=== PATIENT | male | born 1955 | race Caucasian/White ===

== ENCOUNTER 2018-12-10 18:37 | Inpatient (IN) ==
[2018-12-10] MEDS ORDERED: Naloxone 0.4 MG/ML INJ IVP PRN (22:52)
[2018-12-10] MEDS ORDERED: 0.9 % Sodium Chloride 1,000 ML IVC SCH (23:00)
[2018-12-11 00:03] LABS: Eosinophils % 0.1 %; Monocytes % 7.5 %; Red Cell Distribution Width 17.4 % (11.5-14.5)
[2018-12-11 00:05] LABS: Basophils % 0.3 %; Hematocrit 24.3 % (37.5-50.1); Immature Granulocytes % 0.7 % (0-4); Lymphocytes # 1.2 K/mcL (0.6-4.6); Lymphocytes % 10.9 %; Mean Corpuscular HGB Conc 28.8 g/dL (31.6-35.5); Mean Corpuscular Hemoglobin 20.6 pg (28.0-33.3); Mean Corpuscular Volume 71.7 fL (83.0-100.0); Mean Platelet Volume 9.5 fL (9.4-12.4); Monocytes # 0.8 K/mcL (0.0-1.3); Neutrophils # 8.6 K/mcL (1.6-8.9); Nucleated Red Blood Cells 0.2 /100 WBC (0); Platelet Count 310 K/mcL (140-400); Red Blood Count 3.39 M/mcL (4.19-5.50); Segmented Neutrophils % 80.5 %
[2018-12-11 00:09] LABS: INR 1.2; Prothrombin Time 13.2 Seconds (9.4-12.1)
--- NOTE | 2018-12-11 00:14 | Internal Med History&Physical ---
Date of Encounter: 12/11/18 Time of Encounter: 00:03 Internal Medicine - H&P: HPI Chief complaint: Hematuria History of present illness: Mr. Espinoza is a 63 year old male with a past medical history of uncontrolled hypertension and recurrent episodes of gross hematuria who initially presented to [facility] after a syncopal episode earlier today. Patient states that he awoke this morning feeling somewhat lightheaded getting out of bed. When about his day at work. Patient states that around noon as he was doing some heavy lifting, he felt dizzy and lightheaded. He went to sit down and the next thing he knew he was on the ground with coworkers looking down upon him. Patient was noted at the time to be diaphoretic when he came to. No reports that the episode was witnessed by anyone. Patient believes he was out of her a few minutes. Denies any symptoms of nausea, flushing, palpitations or chest pain prior to syncopal event. Per report patient had another syncopal event after EMT arrived and was placing him on the gurney. Patient does not recall this episode either. Patient states that he has been taking his friend's antihypertensive medications, specifically lisinopril and metoprolol intermittently which she states was the same medication he was previously on. He is unsure of the doses are the same as his previous regimen. After arrival to [facility], laboratory workup was notable for hemoglobin of 6.0. Patient states that he has been having intermittent episodes of gross hematuria since 2011. He states that has been treated with antibiotics for his hematuria in the past and his hematuria would resolve, but woud eventually recur. Patient states that for the past several months it has been persistent. He denies any pain, dysuria, frequency or urgency. Patient denies any history of kidney stones or flank pain for that matter. No reports of unintentional weight loss. Patient is a never smoker. No alcohol use. Patient also has a history of hypertension and at times he stated his blood pressure is been over 200. Patient was taking antihypertensives up until recently as the cost has been too much for him. He is not currently on any medical insurance. 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 Past Med Surg Social Fam HX - Past Medical History Medical history: hypertension Additional medical history: cateracts Psychiatric history: no psych history - Past Surgical History Additional surgical history: left eye surgery - Social History Smoking Status: Never smoker Smokeless Tobacco Status: No Alcohol use: none Drug use: none - Additional Family History Additional family history: Family history of high blood pressure Internal Medicine - H&P: Meds No Known Home Drugs 12/11/18 [History] Allergy/AdvReac Type Severity Reaction Status Date / Time No Known Allergies Allergy Verified 12/10/18 23:18 All Systems PM: A 10-system review of systems was performed and is negative for pertinent findings except as documented above in the HPI. - Constitutional Constitutional: no chills, no fever(s), no night sweats - EENT Eyes: no change in vision, no discharge, no pain, no photophobia Ears: no ear discharge, no ear pain, no tinnitus Nose, mouth and throat: no dysphagia, no nasal discharge, no neck pain, no sore throat - Cardiovascular Cardiovascular ROS IM: no chest pain, no diaphoresis, no dyspnea, no lightheadedness, no palpitations, no syncope - Respiratory Respiratory: no cough, no dyspnea, no wheezing, no excessive phlegm production - Gastrointestinal Gastrointestinal: no abdominal pain, no diarrhea, no hematemesis, no hematochezia, no melena, no nausea, no vomiting - Musculoskeletal Musculoskeletal ROS IM: no numbness, no tingling - Integumentary Integumentary IM: no rash, no unusual bruising - Neurological Neurological ROS: no confusion, no convulsions, no focal weakness, no numbness, no tingling, no tremor(s) - Hematologic/Lymphatic Hematologic/Lymphatic: no easy bruising - Constitutional Vitals: Temp Pulse Resp BP Pulse Ox 100.1 F H 80 15 160/76 98 12/10/18 21:34 12/10/18 21:34 12/10/18 21:34 12/10/18 21:34 12/10/18 21:34 Exam: General: Alert and oriented 3 lying in bed in no acute distress Skin:Normal color, no rash, no lesions. HEENT:EOM, pupils equal, round and reactive. Cardiovascular:Normal S1 & S2, no rubs, murmurs or gallops. No JVD. Pulse regular. Lungs:Normal breath sounds, no wheezes or crackles. Abdomen:Soft, non-tender, no rigidity. Extremities:No deformity, no edema or tenderness, no joint swelling or clubbing. Neurological:Normal cognition and motor skills. Pulses:Carotid and radial pulses normal +2. Rest of the physical exam is non contributory Internal Med - H&P Results - Labs CBC & Chem 7: 12/10/18 23:39 12/10/18 23:39 - Assessment and Plan (1) Syncope Current Visit: Yes Status: Acute Assessment and plan: Patient presents with a unwitnessed syncopal episode preceded by dizziness/lightheadedness. Patient reportedly had a second syncopal episode after EMS had arrived and was transitioning him to the [facility]. On the have a hemoglobin of 6.0. In addition, Patient has been taking a friend's antihypertensive medications, specifically metoprolol and lisinopril for his high blood pressure. Likely etiology orthostatic in the setting of patient's significant anemia and use a friend's antihypertensive medications. Cannot rule out cardiogenic cause given his history of uncontrolled hypertension. -Telemetry -Check orthostatics -Continue blood transfusion -We will obtain echocardiogram/EKG - Qualifiers: Syncope type: unspecified Qualified Code(s): R55 - Syncope and collapse (2) Gross hematuria Current Visit: Yes Status: Acute Assessment and plan: Patient presents with painless gross hematuria which has been ongoing for the past 7 years. Now in the setting of a syncopal episode with a hemoglobin of 6. Patient denies any fever, dysuria, frequency or urgency. No prior smoking history. Denies any unintentional weight loss. Case was discussed with Dr. Joseph urology. -Continue IV fluids -We will obtain UA and blood cultures; gross ample to be retained for inspection. -We will obtain a CT scan of the abdomen and pelvis without contrast -Urology to follow in the morning (3) Hypertension Current Visit: Yes Status: Acute Assessment and plan: History of uncontrolled hypertension. Patient reports at one point his blood pressure was noted to be over 200. Patient has been using his friend's antihypertensive regimen. -Blood pressure currently stable. We will monitor. We will hold antihy pertensives for now. -Patient will likely need social work specialist consult for aid in obtaining blood pr essure medications after discharge. Qualifiers: Hypertension type: essential hypertension Qualified Code(s): I10 - Essential (primary) hypertension (4) Anemia Current Visit: Yes Status: Acute Assessment and plan: Hemoglobin of 6.0 in the setting of chronic hematuria. Patient received 1 unit of packed red blood cells prior to transfer. -We will transfuse an additional unit of packed red blood cells. -Monitor H&H -Urology for further evaluation Qualifiers: Anemia type: unspecified type Qualified Code(s): D64.9 - Anemia, unspecified (5) DVT prophylaxis Current Visit: Yes Status: Acute Assessment and plan: Pneumatic compression device - Time Spent With Patient Total time spent is greater than 50% in coordination of care (as documented) at patient's floor/unit and/or counseling patient:
[2018-12-11 00:16] LABS: Iron 114 mcg/dL (65-175); Transferrin 385 mg/dL (203-362)
[2018-12-11 00:17] LABS: % Iron Saturation 21 % (20-55)
[2018-12-11 00:19] LABS: Alanine Aminotransferase 14 Units/L (7-52); Albumin/Globulin Ratio 1.5 (1.1-2.2); Alkaline Phosphatase 93 Units/L (34-104); Aspartate Amino Transferase 13 Units/L (13-39); BUN/Creatinine Ratio 12 (6-26); Bilirubin,Total 0.8 mg/dL (0.3-1.0); Blood Urea Nitrogen 13 mg/dL (8-23); Calcium 8.8 mg/dL (8.6-10.3); Carbon Dioxide 21 mEq/L (23-29); Chloride 108 mEq/L (98-107); Globulin 2.7 g/dL (2.4-3.5); Glucose 122 mg/dL (70-105); Magnesium 1.9 mg/dL (1.6-2.6); Osmolality,Calculated 285 (280-300); Potassium 4.1 mEq/L (3.5-5.1); Sodium 137 mEq/L (136-145); Total Protein 6.7 g/dL (6.4-8.9); eGFR For Non-African Americans > 60 (> 60)
[2018-12-11 00:20] LABS: Troponin I < 0.03 ng/mL (< 0.04)
[2018-12-11 00:57] LABS: Bilirubin,Urine Negative (Negative); Blood,Urine Large (Negative); Clarity,Urine Cloudy (Clear); Glucose,Urine (UA) 100 mg/dL (Normal); Ketones,Urine Negative (Negative); Leukocyte Esterase,Urine Trace (Negative); Nitrite,Urine Negative (Negative); Protein,Urine 100 mg/dL (Neg-Trace); Urobilinogen,Urine Normal (Normal)
[2018-12-11 00:59] LABS: Color,Urine Amber (Yellow)
[2018-12-11 01:13] LABS: Hypochromasia Present (Not Present); Platelet Estimate Normal (Normal)
[2018-12-11] MEDS ORDERED: 0.9 % Sodium Chloride 250 ML ONE (03:00)
--- NOTE | 2018-12-11 10:43 | Urology - Consult Note ---
Date of Encounter: 12/11/18 Time of Encounter: 10:41 - Assessment and Plan (1) Bladder tumor Current Visit: Yes Status: Acute Assessment and plan: 63-year-old man with a history of a large bladder tumor causing right hydronephrosis. I recommend proceeding with a transurethral resection of bladder tumor and placement of a right ureteral stent. We reviewed the risks which include but are not limited to bleeding, infection, injury to other structures, need for further procedures, bladder perforation, need for open repair, need for indwelling catheter, stent irritation, and the risk of anesthesia. He is willing to proceed. (2) Hydronephrosis Current Visit: Yes Status: Acute Assessment and plan: We will place a stent today. Qualifiers: Hydronephrosis type: other Qualified Code(s): N13.39 - Other hydronephrosis (3) Gross hematuria Current Visit: Yes Status: Acute Assessment and plan: Surgery should improve his bleeding once this tumor has been resected. He has been transfused and his hemoglobin is currently 7. He is otherwise hemodynamically stable. We will need to closely follow his blood counts and he may need a repeat transfusion depending upon how he does. Urology CN:HPI Consult date: 12/11/18 Reason for consult Urology: Gross Hematuria Requesting physician: Bala Constantino History of present illness: 63-year-old man presents with a 2-3 year history of gross hematuria. He reports that this has been intermittent. Yesterday he began to feel more lightheaded and tired. The bleeding was more pronounced. He came to an outside emergency department. He was noted to be anemic. He was given a blood transfusion and transferred to [place]. He underwent a CT scan today which showed a greater than 5 cm bladder tumor with evidence of right hydronephrosis. He says he is able to pass urine, and he is feeling better today after being tr ansfused. Past Med Surg Social Fam HX - Past Medical History Medical history: hypertension Additional medical history: cateracts Psychiatric history: no psych history - Past Surgical History Additional surgical history: left eye surgery - Social History Smoking Status: Never smoker Smokeless Tobacco Status: No Alcohol use: none Drug use: none - Family History Father Hx Family Respiratory Disorders: Yes (Lung cancer) Medications and Allergies No Known Home Drugs 12/11/18 [History] Allergy/AdvReac Type Severity Reaction Status Date / Time No Known Allergies Allergy Verified 12/10/18 23:18 Review of Systems - Constitutional fatigue, no chills, no fever(s) - EENT Eyes: bilateral: Blurred vision (Cataracts) Nose, mouth and throat: no dizziness - Cardiovascular no chest pain - Respiratory no dyspnea - Gastrointestinal no nausea, no vomiting - Genitourinary hematuria, no flank pain - Musculoskeletal no back pain - Integumentary no erythema, no rash - Neurological no weakness - Psychiatric no suicidal ideation - Hematologic/Lymphatic no easy bleeding - Allergic/Immunologic no wheezing Exam Initial Vital Signs Temp Pulse Resp BP Pulse Ox 100.1 F H 80 15 160/76 98 12/10/18 21:34 12/10/18 21:34 12/10/18 21:34 12/10/18 21:34 12/10/18 21:34 - General physical appearance Present: well developed, well nourished, no distress - Eyes Present: other (Visual acuity is diminished.). Absent: icteric - ENT Present: normal nares - Neck Present: trachea midline - Respiratory Present: normal respiratory effort - Cardiovascular Cardiovascular exam IM: RRR - Abdomen Abdomen: Present: soft - Integumentary Present: no rash - Neurologic Present: normal coordination - Musculoskeletal Present: normal gait Urology Results - Labs 12/10/18 23:39 12/10/18 23:39 Abnormal lab results RBC 3.39 M/mcL (4.19-5.50) L 12/10/18 23:39 Hgb 7.0 g/dL (12.9-16.9) L 12/10/18 23:39 Hct 24.3 % (37.5-50.1) L 12/10/18 23:39 MCV 71.7 fL (83.0-100.0) L 12/10/18 23:39 MCH 20.6 pg (28.0-33.3) L 12/10/18 23:39 MCHC 28.8 g/dL (31.6-35.5) L 12/10/18 23:39 RDW 17.4 % (11.5-14.5) H 12/10/18 23:39 Nucleated RBCs/100 WBC 0.2 /100 WBC (0) H 12/10/18 23:39 Hypochromasia Present (Not Present) A 12/10/18 23:39 PT 13.2 Seconds (9.4-12.1) H 12/10/18 23:39 Chloride 108 mEq/L (98-107) H 12/10/18 23:39 Carbon Dioxide 21 mEq/L (23-29) L 12/10/18 23:39 Glucose 122 mg/dL (70-105) H 12/10/18 23:39 Transferrin 385 mg/dL (203-362) H 12/10/18 23:39 Urine Color Radha (Yellow) A 12/11/18 00:25 Urine Clarity Cloudy (Clear) A 12/11/18 00:25 Urine Protein 100 mg/dL (Neg-Trace) H 12/11/18 00:25 Urine Glucose (UA) 100 mg/dL (Normal) H 12/11/18 00:25 Urine Blood Large (Negative) H 12/11/18 00:25 Ur Leukocyte Esterase Trace (Negative) H 12/11/18 00:25 Ur Culture Indicated? YES (NO) A 12/11/18 00:25 Diabetes panel 12/10/18 Range/Units 23:39 Sodium 137 (136-145) mEq/L Potassium 4.1 (3.5-5.1) mEq/L Chloride 108 H (98-107) mEq/L Carbon Dioxide 21 L (23-29) mEq/L BUN 13 (8-23) mg/dL Creatinine 1.12 (0.70-1.30) mg/dL Glucose 122 H (70-105) mg/dL Calcium 8.8 (8.6-10.3) mg/dL AST 13 (13-39) Units/L ALT 14 (7-52) Units/L Alkaline Phosphatase 93 (34-104) Units/L Albumin 4.0 (3.5-5.7) g/dL Calcium panel 12/10/18 Range/Units 23:39 Calcium 8.8 (8.6-10.3) mg/dL Albumin 4.0 (3.5-5.7) g/dL Pituitary panel 12/10/18 Range/Units 23:39 Sodium 137 (136-145) mEq/L Potassium 4.1 (3.5-5.1) mEq/L Chloride 108 H (98-107) mEq/L Carbon Dioxide 21 L (23-29) mEq/L BUN 13 (8-23) mg/dL Creatinine 1.12 (0.70-1.30) mg/dL Glucose 122 H (70-105) mg/dL Calcium 8.8 (8.6-10.3) mg/dL Adrenal panel 12/10/18 Range/Units 23:39 Sodium 137 (136-145) mEq/L Potassium 4.1 (3.5-5.1) mEq/L Chloride 108 H (98-107) mEq/L Carbon Dioxide 21 L (23-29) mEq/L BUN 13 (8-23) mg/dL Creatinine 1.12 (0.70-1.30) mg/dL Glucose 122 H (70-105) mg/dL Calcium 8.8 (8.6-10.3) mg/dL Total Bilirubin 0.8 (0.3-1.0) mg/dL AST 13 (13-39) Units/L ALT 14 (7-52) Units/L Alkaline Phosphatase 93 (34-104) Units/L Albumin 4.0 (3.5-5.7) g/dL All other labs normal. - Imaging CT scan - abdomen: report reviewed, image reviewed CT scan - pelvis: report reviewed, image reviewed Consult Discharge Plan - Plan Referrals: NONE,PCP [Primary Care Provider] -
[2018-12-11] MEDS ORDERED: cefTRIAXone 1,000 MG in Water for inj. (sterile) 20 ML 10 ML IVP ONE (10:46)
--- NOTE | 2018-12-11 11:40 | Event Note ---
Date of Encounter: 12/11/18 Time of Encounter: 11:35 Patient here for syncopal episode with long standing history of hematuria. Workup showed hemoglobin low at 6.0 and transfused 1 unit PRBC. Currently has no complaints. VS: reviewed PE: gen: NAD, CVS: RRR, lungs: CTAB, GI: abd soft, nt/nd, normal bowel sounds, ext: no edema, no cyanosis, skin: warm, dry. Labs: reviewed CT abdomen/pelvis: reviewed. A/P: Syncope Anemia Bladder tumor hypertension. Likely syncope is from anemia, and questionable compliance with BP medications and poor hypertension management. s/p 1 unit PRBC Monitor H&H and vitals Urology consulted, scheduled for tumor removal today SW consult for medication assistance
--- NOTE | 2018-12-11 11:46 | Anesthesia Evaluation PreOp ---
Date of Encounter: 12/11/18 Time of Encounter: 13:06 - Past History Planned Operation: TURBT, RIGHT URETERIC STENT Cardiac History: HTN Pulmonary History: Denies Any Significant HX PUNCH [employer]ESS [employer]TER History: Denies Any Significant HX Other Medical History: Renal (BLADDER TUMOR, OSTRUCTED RIGHT URETER, RIGHT HYD RONEPHROSIS), Bleeding (HEMATURIA, ANEMIA, POST 2 UNITS PRBC) Alcohol Use: none Drug use: none Medications and Allergies No Known Home Drugs 12/11/18 [History] Allergy/AdvReac Type Severity Reaction Status Date / Time No Known Allergies Allergy Verified 12/10/18 23:18 - Meds/Allergy Pre-op Review Medications Reviewed: Yes Allergies Reviewed: Yes Anesthesia Results - Labs 12/10/18 23:39 12/10/18 23:39 Anesthesia Exam Vital Signs/O2 Sat/Glucose, Most Recent Temp Pulse Resp BP Pulse Ox 98.6 F 75 16 174/82 96 12/11/18 11:09 12/11/18 11:09 12/11/18 11:09 12/11/18 11:09 12/11/18 11:09 Blood Glucose* 149 Weight: 94 KG - BMI 31 - HEENT Mallampati: II Teeth: Normal Oral Opening: Greater than 3 - Cardiac Rhythm: Regular - Pulmonary Breath Sounds: bilateral Clear Respiratory Effort: Symmetrical Anesthesia Assess/Plan ASA Score: 3 Anesthetic Plan: General Monitoring Plan: Standard Monitors Recovery Plan: PACU
[2018-12-11] MEDS ORDERED: Ondansetron 4 MG/2 ML VIAL IVP ONE (13:08)
[2018-12-11] MEDS ORDERED: *HR* Labetalol 20 MG/4 ML SYRINGE IVP PRN (13:08)
[2018-12-11] MEDS ORDERED: *HR* Meperidine 25 MG/ML SYRINGE IVP PRN (13:08)
[2018-12-11] MEDS ORDERED: *HR* Promethazine 25 MG/ML VIAL IVP PRN (13:08)
[2018-12-11] MEDS ORDERED: Acetaminophen IV 1,000 MG/100 ML INFUS..BTL IVPB ONE (13:08)
[2018-12-11] MEDS ORDERED: *HR* HYDROmorphone (PF) 1 MG/ML SYRINGE IVP PRN (13:08)
[2018-12-11] MEDS ORDERED: *HR* OxyCODONE Immed Rel 5 MG TABLET PO PRN ×2 (13:08→16:57)
[2018-12-11] MEDS ORDERED: Albuterol 2.5 MG/3 ML NEBULIZER IH ONE (13:08)
[2018-12-11] MEDS ORDERED: *HR* FentaNYL (PF) 100 MCG/2 ML VIAL ONE (13:28)
[2018-12-11] MEDS ORDERED: Dexamethasone 4 MG/ML VIAL ONE (13:28)
[2018-12-11] MEDS ORDERED: *HR* Propofol 200 MG/20 ML VIAL IVP ONE (13:28)
[2018-12-11] MEDS ORDERED: Ondansetron 4 MG/2 ML VIAL ONE (13:28)
[2018-12-11] MEDS ORDERED: *HR* Succinylcholine 200 MG/10 ML VIAL IVP ONE (13:28)
[2018-12-11] MEDS ORDERED: Lidocaine -MPF 4% 5 ML AMPUL ONE (13:33)
[2018-12-11] MEDS ORDERED: Acetaminophen IV 1,000 MG/100 ML INFUS..BTL ONE (14:24)
[2018-12-11] MEDS ORDERED: EPHEDrine 50 MG/ML VIAL ONE (14:54)
[2018-12-11] MEDS ORDERED: *HR* HYDROMORPHONE 2 MG/ML VIAL ONE (15:14)
--- NOTE | 2018-12-11 16:00 | Operative Note ---
Date of procedure: 12/11/18 Pre-op diagnosis: Bladder tumor, right ureteral obstruction Post-op diagnosis: same Procedure: Transurethral resection of bladder tumor large, right ureteral stent placement Implants: 6-Danish by 26 cm double-J stent 22-Danish 3-way catheter Complications: None Anesthesia: RENATA Surgeon: Justin Joseph Was there an delivery driver assistant present: No Estimated blood loss (cc): 20 Specimen: Bladder tumor Condition: stable Disposition: PACU Procedure in Detail: Indications: Mr. Espinoza is a 63-year-old gentleman who has a history of hematuria. He had a CT scan which showed a >5cm bladder tumor near the right ureteral orifice. There was associated right hydronephrosis. He elected to undergo a transurethral resection of bladder tumor with placement of a right ureteral stent. He was informed of the risks of the procedure including but not limited to bleeding, infection, injury to other structures, need for further procedures, and the risk of anesthesia. He is willing to proceed. Procedure: After informed consent was obtained Mr. Espinoza was brought back to the operating room and placed in the supine position. A timeout was performed. General anesthesia was then administered and an endotracheal tube was placed. He was then placed in the lithotomy position. His genitalia were prepped and draped in the usual sterile fashion. The penile urethra was dilated up to 30 Danish using the Ragini sounds. The resector sheath was inserted using the visual obturator. The anterior urethra was unremarkable. Prostate showed trilobar hyperplasia. Upon entering the bladder there was a very large tumor extending from the trigone near the right ureteral orifice along the lateral wall. There was a large amount of blood clot. The blood clot was irrigated out. The tumor was previous measured at 5.9 x 6.8 cm. There is also a smaller tumor which was approximately 2.5 cm located along the left lateral wall of the bladder. Finally there is a tumor which is approximately 3 cm located along the floor the bladder extending towards the dome. I inserted the resecting element. The tumors were resected away. The bladder tumor chips were irrigated away. Hemostasis was achieved using electrocautery. I surveyed the area of resection and confirmed that the bleeding was well- controlled. The right ureteral orifice had been resected during the procedure. A zip wire was placed up the right ureteral orifice. A 6-Danish by 26 cm double-J stent was then placed under fluoroscopic guidance. The dangle strings were removed. The left ureteral orifice was intact and free of any injury. A 22-Danish 3-way catheter was then placed. 30 mL was instilled in the balloon. Slow irrigation was initiated. The patient was then awakened from general anesthesia and brought to the recovery room in good condition. All sponge, needle and instrument counts were correct.
[2018-12-11] MEDS ORDERED: Naloxone 0.4 MG/ML INJ IVP PRN (16:57)
[2018-12-11] MEDS ORDERED: Ondansetron 4 MG/2 ML VIAL IVP PRN (16:57)
--- NOTE | 2018-12-11 18:14 | Anesthesia Evaluation Post Op ---
Date of Encounter: 12/11/18 Time of Encounter: 16:39 - Discharge PostOp Status: Transfer Patient to floor (Patient's vital signs have been reviewed. Patient is stable postoperatively and has adequately recovered from anesthesia. Patient is determined to have stable airway patency and respiratory function including respiratory rate and oxygen saturation. Patient has a stable heart rate, blood pressure and adequate hydration. Patients mental status is acceptable. Patients temperature is appropriate. Pain and nausea are adequately controlled.)
--- NOTE | 2018-12-12 08:53 | Internal Med Progress Note ---
Hospitalist Progress Note - Encounter Date of Encounter: 12/12/18 Time of Encounter: 09:00 - Subjective Interval History: No acue events. Denies syncope, presyncopal episodes, CP, SOB, N/V. - Exam Vitals: Temp Pulse Resp BP Pulse Ox 98.3 F 77 12 174/79 99 12/12/18 07:39 12/12/18 07:39 12/12/18 07:39 12/12/18 07:39 12/12/18 07:39 Exam: General: Alert and oriented 3 lying in bed in no acute distress Skin:Normal color, no rash, no lesions. HEENT:EOM, pupils equal, round and reactive. Cardiovascular:Normal S1 & S2, no rubs, murmurs or gallops. No JVD. Pulse regula r. Lungs:Normal breath sounds, no wheezes or crackles. Abdomen:Soft, non-tender, no rigidity. Extremities:No deformity, no edema or tenderness, no joint swelling or clubbing. Neurological:Normal cognition and motor skills. Pulses:Carotid and radial pulses normal +2. Rest of the physical exam is non contributory - Assessment and Plan (1) Syncope Current Visit: Yes Status: Acute Assessment and Plan: Patient presents with a unwitnessed syncopal episode preceded by dizziness/ lightheadedness. Patient reportedly had a second syncopal episode after EMS had arrived and was transitioning him to the [facility]. On the have a hemoglobin of 6.0. In addition, Patient has been taking a friend's antihypertensive medications, specifically metoprolol and lisinopril for his high blood pressure. Echocardiogram and EKG unremarkable.Likely etiology orthostatic in the setting of patient's significant anemia and use a friend's antihypertensive medications and/or from symptomatic anemia. (2) Bladder tumor Current Visit: Yes Status: Acute Assessment and Plan: Seen on CT abdomen/pelvis which causes significant hydronephrosis. s/p removal by Urology with stent placed. Doing well. Cytology pending. (3) Gross hematuria Current Visit: Yes Status: Acute Assessment and Plan: Likely from bladder tumor obstruction. s/p removal with stent placement. (4) Hypertension Current Visit: Yes Status: Acute Assessment and Plan: History of uncontrolled hypertension. Patient reports at one point his blood pressure was noted to be over 200. Patient has been using his friend's antihypertensive regimen. SW consult for medication assistance. Improved. Start slowly to decrease BP. Start Norvasc 5 mg today. (5) Anemia Current Visit: Yes Status: Acute Assessment and Plan: Hemoglobin of 6.0 in the setting of chronic hematuria. Patient received 1 unit of packed red blood cells prior to transfer. Received an additional 1 unit PRBC here. Hemoglobin now stable. Hemodynamically stable. (6) DVT prophylaxis Current Visit: Yes Status: Acute Assessment and Plan: Pneumatic compression device - Time Spent with Patient Total time spent is greater than 50% in coordination of care (as documented) at patient's floor/unit and/or counseling patient: Internal Medicine: Result - Labs CBC & Chem 7: 12/12/18 08:35 12/12/18 11:00 - ABG Interpretation ABG results: PT/INR, D-dimer PT 13.2 Seconds (9.4-12.1) H 12/10/18 23:39 - Impressions Impressions Fluoroscopy 12/11/18 16:38 IMPRESSION: Please refer to the operative note for a description of the procedure. D/ / Demar Ayers MD / Demar Ayers MD Interpreting Provider: Demar Ayers MD Echocardiogram 12/11/18 23:36 Impressions: LVEF 60%. Mild left ventricular diastolic dysfunction. Normal right ventricular structure and function. Mild mitral regurgitation. No pulmonary hypertension. Left Ventricular Wall Motion: Rest Echo Findings All wall segments showed normal motion. Findings: Study Quality * Technically adequate exam. ECG Findings * Normal sinus rhythm. Left Ventricle * LVEF 60%. * Normal LV chamber size, wall thickness and function. * Mild left ventricular diastolic dysfunction. * No LVOT obstruction. Right Ventricle * Normal right ventricular structure and function. Left Atrium * Mildly dilated left atrium. Right Atrium * Normal right atrial size. Aortic Valve * No aortic regurgitation. * Aortic valve not well visualized. * No aortic stenosis. Mitral Valve * Normal mitral valve structure. * No mitral stenosis. * Mild mitral regurgitation. Tricuspid Valve * Tricuspid valve not well visualized. * Estimated RA pressure is 3 mmHg. * No tricuspid regurgitation. Pulmonic Valve * Pulmonic valve is not well visualized. * No pulmonic stenosis. * No pulmonic regurgitation. Pulmonary Artery * Pulmonary artery not well visualized. Aorta * Normally sized aortic root. Pericardium * There is no pericardial effusion present. Interatrial Septum * No evidence of PFO by color Doppler. IVC * Normal IVC dimensions and inspiratory collapse. Consult Discharge Plan - Plan Referrals: NONE,PCP [Primary Care Provider] - (1) Syncope Qualifiers: Syncope type: unspecified Qualified Code(s): R55 - Syncope and collapse (4) Hypertension Qualifiers: Hypertension type: essential hypertension Qualified Code(s): I10 - Essential (primary) hypertension (5) Anemia Qualifiers: Anemia type: unspecified type Qualified Code(s): D64.9 - Anemia, unspecified
[2018-12-12] MEDS ORDERED: amLODIPine 5 MG TABLET PO SCH (09:00)
--- NOTE | 2018-12-12 09:15 | Urology Progress Note ---
Date of Encounter: 12/12/18 Time of Encounter: 09:13 - Assessment and Plan (1) Bladder tumor Current Visit: Yes Status: Acute Assessment and plan: Postop day #1 status post TURBT and right ureteral stent placement. 1. Okay to discontinue CBI today. 2. Will keep patient in the hospital today to monitor his blood counts and to see how his urine looks off irrigation. 3. Anticipate removal of catheter tomorrow morning. If his urine remains clear and he can void, I would anticipate discharge home tomorrow. He will need to arrange for follow-up with a local urologist for further management of his bladder cancer. (2) Hydronephrosis Current Visit: Yes Status: Acute Qualifiers: Hydronephrosis type: other Qualified Code(s): N13.39 - Other hydronephrosis (3) Gross hematuria Current Visit: Yes Status: Acute Progress Note Narrative: Postoperative #1 status post TURBT and right ureteral stent placement. He is doing well. His urine is clear. Objective Initial Vital Signs Temp Pulse Resp BP Pulse Ox 100.1 F H 80 15 160/76 98 12/10/18 21:34 12/10/18 21:34 12/10/18 21:34 12/10/18 21:34 12/10/18 21:34 - General physical appearance Present: well developed, well nourished, no distress - Respiratory Present: normal respiratory effort - Abdomen Present: soft - Genitourinary Urine Appearance: Present: Clear - Labs 12/10/18 23:39 12/10/18 23:39 Consult Discharge Plan - Plan Referrals: NONE,PCP [Primary Care Provider] -
[2018-12-12 09:29] LABS: Mean Corpuscular Hemoglobin 21.3 pg (28.0-33.3)
[2018-12-12 09:31] LABS: Hematocrit 29.6 % (37.5-50.1); Hemoglobin 8.3 g/dL (12.9-16.9); Mean Corpuscular Volume 76.1 fL (83.0-100.0); Mean Platelet Volume 9.5 fL (9.4-12.4); Platelet Count 337 K/mcL (140-400); Red Blood Count 3.89 M/mcL (4.19-5.50); Red Cell Distribution Width 19.4 % (11.5-14.5)
[2018-12-12 09:41] LABS: BUN/Creatinine Ratio 14 (6-26); Blood Urea Nitrogen 17 mg/dL (8-23); Calcium 9.5 mg/dL (8.6-10.3); Carbon Dioxide 24 mEq/L (23-29); Chloride 104 mEq/L (98-107); Glucose 128 mg/dL (70-105); Osmolality,Calculated 283 (280-300); Potassium 4.4 mEq/L (3.5-5.1); Sodium 135 mEq/L (136-145); eGFR For Non-African Americans 59 (> 60)
[2018-12-12 11:42] LABS: BUN/Creatinine Ratio 15 (6-26); Blood Urea Nitrogen 18 mg/dL (8-23); Calcium 9.6 mg/dL (8.6-10.3); Carbon Dioxide 22 mEq/L (23-29); Chloride 104 mEq/L (98-107); Glucose 121 mg/dL (70-105); Osmolality,Calculated 285 (280-300); Potassium 4.1 mEq/L (3.5-5.1); Sodium 136 mEq/L (136-145); eGFR For Non-African Americans 59 (> 60)
[2018-12-13 05:19] LABS: BUN/Creatinine Ratio 15 (6-26); Blood Urea Nitrogen 20 mg/dL (8-23); Carbon Dioxide 24 mEq/L (23-29); Chloride 106 mEq/L (98-107); Glucose 132 mg/dL (70-105); Osmolality,Calculated 288 (280-300); Potassium 3.9 mEq/L (3.5-5.1); Sodium 137 mEq/L (136-145); eGFR For Non-African Americans 56 (> 60)
--- NOTE | 2018-12-13 06:27 | Discharge Summary ---
<Yovani Win - Last Filed: 12/13/18 13:56> - NOTES TO OUTPATIENT PROVIDER Notes to Outpatient Provider: Bladder tumor pathology pending, DCd on amlodipine. Pt has history of taking friend's BP meds. Serum creatinine elevated, likely 2/2 obstruction which is resolved. BMP ordered for 3-5 days. Orders not resulted at time of discharge: Pending orders 12/11/18 07:36 EKG [ECG 12 lead ECG] [ECG] Routine 12/11/18 16:33 Surgical Pathology [PTH] Routine 12/11/18 16:38 XR KUB [XR] Routine 12/14/18 04:00 BMP [Basic Metabolic Panel] AM 0400 Date of Encounter: 12/13/18 Time of Encounter: 08:30 - Discharge Diagnosis (1) Gross hematuria Priority: Secondary Status: Acute (2) Hypertension Priority: Secondary Status: Acute Qualifiers: Hypertension type: essential hypertension Qualified Code(s): I10 - Essential (primary) hypertension (3) Anemia Priority: Secondary Status: Acute Qualifiers: Anemia type: unspecified type Qualified Code(s): D64.9 - Anemia, unspecified (4) Syncope Priority: Secondary Status: Acute Qualifiers: Syncope type: unspecified Qualified Code(s): R55 - Syncope and collapse (5) Bladder tumor Priority: Primary Status: Acute Hospital course: Mr. Espinoza is a 63 year old male who presented to [facility] from [facility] due to syncope and gross hematuria. On presentation the patient was found to have significant anemia with a hemoglobin of 6.0. It was noted that the patient has had intermittent episodes of gross hematuria over the past several years. Further evaluation demonstrated a large bladder tumor causing right hydronephrosis with significant blood loss. He did undergo a transurethral resection of the bladder tumor with placement of a right ureteral stent with urology. The patient also underwent syncope workup with echocardiogram which was unremarkable. While here, the patient did admit to taking his friend's blood pressure medications and having issues with affording medications. We started him on amlodipine and worked with social work to determine that the patient was able to pay for medication. Pathology is still pending however the patient is acceptable for discharge with medical clearance and follow-up with urology for stent removal. Discharge discussed with: patient, nurse, social work, case management, business analyst consultant - Time Spent with Patient Total time spent providing and/or coordinating discharge services: Time spent: Greater than 30 minutes - Discharge Medications Prescriptions: New amLODIPine [Norvasc] 10 mg PO DAILY #30 tablet Home Medications: amLODIPine [Norvasc] 10 mg PO DAILY #30 tablet 12/13/18 [Rx] Allergies/Adverse Reactions: Allergy/AdvReac Type Severity Reaction Status Date / Time No Known Allergies Allergy Verified 12/10/18 23:18 Date of admission: 12/10/18 22:57 Primary care physician: PCP NONE Consults: 12/10/18 23:02 Consult to Urology [CONS] Routine Consulting Provider: Urology Rachael Reason for Consult: Gross Hematuria Call Completed: No 12/11/18 02:21 Consult to Fire Alarm Repairer [CONS] Routine Reason for SW Consult: no insurance and financial concerns Discharging clinician: Yovani Win Anticipated date of discharge: 12/13/18 - Constitutional Vitals: Temp Pulse Resp BP Pulse Ox 98.0 F 70 14 157/84 98 12/13/18 06:19 12/13/18 06:19 12/13/18 06:19 12/13/18 06:19 12/13/18 06:19 Exam: Gen: Vitals noted. No acute distress. Eyes: anicteric sclerae, moist conjunctivae; no lid-lag; Pupils equal and reactive to light HENT: Atraumatic; oropharynx clear with moist mucous membranes and no mucosal ulcerations; normal hard and soft palate Neck: Trachea midline; supple, no thyromegaly or lymphadenopathy Cardiac: RRR, no murmur, +S1/S2 Pulmonary: CTA bilaterally, no wheezes, rales or rhonchi, equal chest expansion Abdomen: soft, nontender, no guarding. No masses or hepatosplenomegaly MSK: ROM intact, no joint swelling noted Extremities: no BLE edema, nontender calf, no cyanosis or clubbing Skin: Normal temperature, turgor and texture; no rash, ulcers or subcutaneous nodules Neuro: moves all extremities, no focal deficits. Psych: Appropriate mood and behavior. A&Ox3 - Patient Status Disposition: Home, Self-Care Condition: Good Overall status at discharge: patient is progressing back to baseline - Ambulatory Orders Ambulatory Orders: Basic Metabolic Panel [CHEM] Time Frame: 1 Week, Location: N/A - Discharge Instructions Instructions: Acute Hematuria (DC) Follow Up With: Justin Joseph MD [Partnered Physician] - 12/21/18 8:00 am NONE,PCP [Primary Care Provider] - Additional Instructions: Follow-up appointments: If there is not an appointment listed below, please call your physician and schedule a follow-up appointment. If you have congestive heart failure and your symptoms return, make an appointment with your physician. Follow up by having labs drawin in 3-5 days for kidney levels. PCP or Urologist can review Medication List: Carry an up to date list of medications you are taking at all time. We have given you an updated medication list including any new medications that you have been prescribed. Please provide that list to your primary provider New Medications at discharge: -Amlodipine 10mg If you smoke, STOP: Smoking or tobacco use significantly increases your risk of heart and lung di sease. Your chance of disease greatly increases if you continue to smoke. For more information, call the [employer] quit line for smoking cessation 6-671-MFSO-NOW ( ) - Diet and Activity Activity: increase activity as tolerated Diet: advance to your usual diet <Razia Saldana - Last Filed: 12/13/18 20:30> Orders not resulted at time of discharge: Pending orders 12/11/18 16:33 Surgical Pathology [PTH] Routine 12/11/18 16:38 XR KUB [XR] Routine Date of Encounter: 12/13/18 - Discharge Diagnosis (1) Gross hematuria Status: Acute (2) Hypertension Status: Acute Qualifiers: Hypertension type: essential hypertension Qualified Code(s): I10 - Essential (primary) hypertension (3) Anemia Status: Acute Qualifiers: Anemia type: unspecified type Qualified Code(s): D64.9 - Anemia, uns pecified (4) Syncope Status: Acute Qualifiers: Syncope type: unspecified Qualified Code(s): R55 - Syncope and collapse (5) Bladder tumor Status: Acute Hospital course: Mr. Espinoza is a 63 year old male - Time Spent with Patient Total time spent providing and/or coordinating discharge services: Date of admission: 12/10/18 22:57 Primary care physician: PCP NONE Consults: 12/10/18 23:02 Consult to Urology [CONS] Routine Consulting Provider: Urology Rachael Reason for Consult: Gross Hematuria Call Completed: No 12/11/18 02:21 Consult to Fire Alarm Repairer [CONS] Routine Reason for SW Consult: no insurance and financial concerns - Constitutional Vitals: Temp Pulse Resp BP Pulse Ox 98.2 F 84 14 157/81 97 12/13/18 10:18 12/13/18 10:18 12/13/18 10:18 12/13/18 10:18 12/13/18 10:18 - Attending Attestation I examined this patient and my medical decision-making was reviewed with the Resident Physician. I agree with the documented findings, disposition and treatment plan as described except to the extent set forth below.
--- NOTE | 2018-12-13 07:39 | Urology Progress Note ---
Date of Encounter: 12/13/18 Time of Encounter: 07:38 - Assessment and Plan (1) Bladder tumor Current Visit: Yes Status: Acute Assessment and plan: Postoperative day #2 status post TURBT and right ureteral stent placement. 1. We will monitor patient's urine today. He needs to void prior to discharge. 2. Anticipate DC home today once he is able to void. 3. He can follow-up in 5-7 days for a cystoscopy and right ureteral stent removal. 4. Appreciate internal medicine support. (2) Hydronephrosis Current Visit: Yes Status: Acute Qualifiers: Hydronephrosis type: other Qualified Code(s): N13.39 - Other hydronephrosis (3) Gross hematuria Current Visit: Yes Status: Acute Progress Note Narrative: Postoperative day #2 status post TURBT and right ureteral stent placement. His urine is clear now. He has been off CBI for a day. He removed his catheter today. Objective Initial Vital Signs Temp Pulse Resp BP Pulse Ox 100.1 F H 80 15 160/76 98 12/10/18 21:34 12/10/18 21:34 12/10/18 21:34 12/10/18 21:34 12/10/18 21:34 - General physical appearance Present: well developed, well nourished, no distress - Respiratory Present: normal respiratory effort - Abdomen Present: soft - Genitourinary Urine Appearance: Present: Clear - Labs 12/12/18 08:35 12/13/18 04:34 Diabetes panel 12/12/18 12/12/18 12/13/18 Range/Units 08:35 11:00 04:34 Sodium 135 L 136 137 (136-145) mEq/L Potassium 4.4 4.1 3.9 (3.5-5.1) mEq/L Chloride 104 104 106 (98-107) mEq/L Carbon Dioxide 24 22 L 24 (23-29) mEq/L BUN 17 18 20 (8-23) mg/dL Creatinine 1.23 1.23 1.30 (0.70-1.30) mg/dL Glucose 128 H 121 H 132 H (70-105) mg/dL Calcium 9.5 9.6 9.0 (8.6-10.3) mg/dL Calcium panel 12/12/18 12/12/18 12/13/18 Range/Units 08:35 11:00 04:34 Calcium 9.5 9.6 9.0 (8.6-10.3) mg/dL Pituitary panel 12/12/18 12/12/18 12/13/18 Range/Units 08:35 11:00 04:34 Sodium 135 L 136 137 (136-145) mEq/L Potassium 4.4 4.1 3.9 (3.5-5.1) mEq/L Chloride 104 104 106 (98-107) mEq/L Carbon Dioxide 24 22 L 24 (23-29) mEq/L BUN 17 18 20 (8-23) mg/dL Creatinine 1.23 1.23 1.30 (0.70-1.30) mg/dL Glucose 128 H 121 H 132 H (70-105) mg/dL Calcium 9.5 9.6 9.0 (8.6-10.3) mg/dL Adrenal panel 12/12/18 12/12/18 12/13/18 Range/Units 08:35 11:00 04:34 Sodium 135 L 136 137 (136-145) mEq/L Potassium 4.4 4.1 3.9 (3.5-5.1) mEq/L Chloride 104 104 106 (98-107) mEq/L Carbon Dioxide 24 22 L 24 (23-29) mEq/L BUN 17 18 20 (8-23) mg/dL Creatinine 1.23 1.23 1.30 (0.70-1.30) mg/dL Glucose 128 H 121 H 132 H (70-105) mg/dL Calcium 9.5 9.6 9.0 (8.6-10.3) mg/dL Consult Discharge Plan - Plan Referrals: NONE,PCP [Primary Care Provider] -
[2018-12-13] MEDS ORDERED: amLODIPine 5 MG TABLET PO SCH (09:00)
[2018-12-13 10:23] VITALS: BP 157/81
--- NOTE | 2018-12-15 22:12 | Electrocardiograph Report ---
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
== END 2018-12-13 16:39 | disposition home or self-care (01) | DRG 657 ==
LOC: 3ANU → EDBD → SUATTDRO 22:57
PROVIDERS: ADMIT Internal Medicine; ATTEND Student in an Organized Health Care Education/Training Program